=== PATIENT | female | born 1970 | race Caucasian/White ===

== ENCOUNTER 2023-11-29 19:54 | Inpatient (IN) | payer BC, OTHER ==
[~2023-11-29 19:54] MED LIST: Iopamidol 300 61% 100 ML VIAL FS ONE
[2023-11-29] MEDS ORDERED: Ondansetron PF 4 MG/2 ML Vial ONE (20:44)
[2023-11-29] MEDS ORDERED: Morphine 4 MG/ML VIAL ONE ×2 (20:44→23:05)
[2023-11-29 21:20] LABS: Bilirubin Neg (Negative); Blood, Urine 50 (Negative); Clarity Clear (Clear); Glucose, Urine (Dipstick) Normal (Negative); Ketone, Urine Negative (Negative); Leukocyte 25 (Negative); Nitrite Negative (Negative); Protein, Urine (Dipstick) Negative (Neg-Trace); Specific Gravity, Urine 1.015 (1.005-1.030); pH, Urine 6.5 (5.0-9.0)
[2023-11-29 21:25] LABS: #Basophils 0.05 10x3/uL (0.0-0.2); #Eosinphils 0.12 10x3/uL (0.0-0.5); #Monocytes 0.71 10x3/uL (0.0-1.1); #Neutrophils 4.19 10x3/uL (1.5-8.4); %Basophils 0.6 % (0.0-2.0); %Eosinophils 1.4 % (0.0-6.0); %Lymphocytes 38.4 % (18.0-47.0); %Monocytes 8.6 % (0.0-10.0); %Neutrophils 50.6 % (40.0-75.0); Hematocrit 41.4 % (34.9-44.5); Hemoglobin 14.1 g/dL (12.0-15.5); Mean Corpuscular HGB CONC 34.1 g/dL (32.0-36.0); Mean Corpuscular Hemoglobin 29.1 pg (27.0-33.0); Mean Corpuscular Volume 85.5 fl (81.6-98.3); Mean Platelet Volume 9.7 fl (7.4-10.4); Platelet Count 371 10x3/uL (150-450); RBC Distribution Width 13.4 % (11.5-14.5); Red Blood Cell (RBC) Count 4.84 10x6/uL (3.90-5.03); White Blood Cell (WBC) Count 8.3 10x3/uL (3.5-10.5)
[2023-11-29 21:43] LABS: ALT (SGPT) 22 U/L (8-55); AST (SGOT) 16 U/L (5-34); Albumin 4.1 g/dL (3.5-5.0); Alkaline Phosphatase 71 U/L (40-110); Anion Gap 13 mmol/L (10-20); BUN (Urea Nitrogen) 11 mg/dL (9.8-20.1); Bacteria/HPF 1+ HPF (None Seen); Bilirubin, Total 1.4 mg/dL (0.2-1.2); CAUTI Indications for Culture Pelvic or flank pain; Calc. Creatinine Clearance 0 mL/min (70-130); Calcium 9.6 mg/dL (7.8-10.44); Carbon Dioxide 23 mmol/L (22-29); Chloride 108 mmol/L (98-107); Estimated GFR 84; Globulin 3.5 g/dL (2.4-3.5); Glucose 90 mg/dL (70-105); Lipase 9 U/L (8-78); Potassium 3.6 mmol/L (3.5-5.1); Protein, Total 7.6 g/dL (6.0-8.3); RBC/HPF 0-3 HPF (0-3); Sodium 140 mmol/L (136-145); Squamous Epithelial 0-3 HPF (0-3)
[2023-11-29 21:44] LABS: Urine Culture Reflex No No
[2023-11-30] MEDS ORDERED: Dicyclomine 20 MG/2 ML VIAL ONE (01:23)
[2023-11-30] MEDS ORDERED: HYDROmorphone 0.5 MG/0.5 ML SYRINGE ONE ×2 (01:23)
[2023-11-30] MEDS ORDERED: Piperacillin/Tazobactam 4.5 GM VIAL ONE (01:23)
[2023-11-30 02:26] LABS: Hematocrit 38.5 % (34.9-44.5); Hemoglobin 12.6 g/dL (12.0-15.5)
[2023-11-30] MEDS ORDERED: Acetaminophen 325 MG TAB PO PRN (02:38)
[2023-11-30] MEDS ORDERED: Dicyclomine 10 MG CAP PO PRN (02:47)
[2023-11-30] MEDS: Dextrose 5%-Lactated Ringers 1,000 ML IV SCH (04:58)
[2023-11-30 05:05] VITALS: BMI 24.8
[2023-11-30] MEDS: cefTRIAXone\\ROCEPHIN 2 GM in Sodium Chloride 0.9% 100 ML IVPB SCH (05:42)
[2023-11-30] MEDS: metroNIDAZOLE 500 MG in Premix 1 BAG IVPB SCH (06:38)
[2023-11-30] MEDS: Famotidine/PF 20 mg/2ml Vial SLOW IVP SCH (07:50)
[2023-11-30] MEDS: Ondansetron PF 4 MG/2 ML Vial IVP PRN (07:50)
[2023-11-30] MEDS: Morphine 4 MG/ML VIAL SLOW IVP PRN (07:51)
[2023-11-30 09:02] LABS: ALT (SGPT) 18 U/L (8-55); AST (SGOT) 13 U/L (5-34); Albumin 3.5 g/dL (3.5-5.0); Alkaline Phosphatase 59 U/L (40-110); Anion Gap 13 mmol/L (10-20); BUN (Urea Nitrogen) 12 mg/dL (9.8-20.1); Bilirubin, Total 0.9 mg/dL (0.2-1.2); Calc. Creatinine Clearance 90 mL/min (70-130); Calcium 8.7 mg/dL (7.8-10.44); Carbon Dioxide 23 mmol/L (22-29); Chloride 108 mmol/L (98-107); Estimated GFR 87; Globulin 3.1 g/dL (2.4-3.5); Glucose 117 mg/dL (70-105); Potassium 3.7 mmol/L (3.5-5.1); Protein, Total 6.6 g/dL (6.0-8.3); Sodium 140 mmol/L (136-145)
[2023-11-30 09:24] LABS: Hematocrit 36.3 % (34.9-44.5); Hemoglobin 12.2 g/dL (12.0-15.5); Mean Corpuscular Hemoglobin 29.3 pg (27.0-33.0); Mean Corpuscular Volume 87.3 fl (81.6-98.3); Red Blood Cell (RBC) Count 4.16 10x6/uL (3.90-5.03)
[2023-11-30 09:25] LABS: Mean Corpuscular HGB CONC 33.6 g/dL (32.0-36.0); Mean Platelet Volume 9.6 fl (7.4-10.4); Platelet Count 346 10x3/uL (150-450); RBC Distribution Width 13.6 % (11.5-14.5)
[2023-11-30 09:27] LABS: MDiff Complete? YES
[2023-11-30 09:28] LABS: Platelet Adequacy Comment Appears Adequate; RBC Morph Comment Within Normal Limits
[2023-11-30 09:33] LABS: Band 3 % (5-11); Monocytes 6 % (0-10); Neutrophil 65 % (42-75)
[2023-11-30 09:34] LABS: Lymphocytes 23 % (21-51); Reactive Lymphocytes 3 % (0-10)
[2023-11-30] MEDS: Pantoprazole 40 MG VIAL IVP SCH ×2 (10:15→21:55)
[2023-11-30] MEDS: HYDROcodone/Acetaminophen 5/325 mg Tablet PO PRN (10:51)
[2023-11-30 13:37] LABS: #Basophils 0.03 10x3/uL (0.0-0.2); #Eosinphils 0.04 10x3/uL (0.0-0.5); #Monocytes 0.45 10x3/uL (0.0-1.1); #Neutrophils 3.94 10x3/uL (1.5-8.4); %Basophils 0.5 % (0.0-2.0); %Eosinophils 0.6 % (0.0-6.0); %Lymphocytes 30.3 % (18.0-47.0); %Neutrophils 61.1 % (40.0-75.0); Hemoglobin 11.6 g/dL (12.0-15.5); Mean Corpuscular HGB CONC 34.1 g/dL (32.0-36.0); Mean Corpuscular Hemoglobin 29.3 pg (27.0-33.0); Mean Corpuscular Volume 85.9 fl (81.6-98.3); Mean Platelet Volume 9.4 fl (7.4-10.4); Platelet Count 327 10x3/uL (150-450); RBC Distribution Width 13.5 % (11.5-14.5); Red Blood Cell (RBC) Count 3.96 10x6/uL (3.90-5.03); White Blood Cell (WBC) Count 6.4 10x3/uL (3.5-10.5)
[2023-11-30] MEDS: Magnesium Citrate 300 ML BOT PO SCH (21:49)
[2023-11-30] MEDS: GoLYTELY 4,000 ml Bottle PO SCH (22:33)
[2023-12-01] MEDS: GoLYTELY 4,000 ml Bottle PO SCH (05:01)
[2023-12-01 08:08] LABS: #Basophils 0.03 10x3/uL (0.0-0.2); #Monocytes 0.44 10x3/uL (0.0-1.1); #Neutrophils 2.09 10x3/uL (1.5-8.4); %Basophils 0.6 % (0.0-2.0); %Eosinophils 1.9 % (0.0-6.0); %Lymphocytes 49.9 % (18.0-47.0); %Monocytes 8.2 % (0.0-10.0); Hematocrit 34.2 % (34.9-44.5); Hemoglobin 11.5 g/dL (12.0-15.5); Mean Corpuscular HGB CONC 33.6 g/dL (32.0-36.0); Mean Corpuscular Hemoglobin 29.3 pg (27.0-33.0); Mean Platelet Volume 9.7 fl (7.4-10.4); Platelet Count 312 10x3/uL (150-450); RBC Distribution Width 13.5 % (11.5-14.5); Red Blood Cell (RBC) Count 3.93 10x6/uL (3.90-5.03); White Blood Cell (WBC) Count 5.4 10x3/uL (3.5-10.5)
[2023-12-01 08:36] LABS: ALT (SGPT) 13 U/L (8-55); AST (SGOT) 11 U/L (5-34); Albumin 3.4 g/dL (3.5-5.0); Alkaline Phosphatase 55 U/L (40-110); Anion Gap 11 mmol/L (10-20); BUN (Urea Nitrogen) 5 mg/dL (9.8-20.1); Bilirubin, Total 0.9 mg/dL (0.2-1.2); Calc. Creatinine Clearance 91 mL/min (70-130); Calcium 8.9 mg/dL (7.8-10.44); Carbon Dioxide 27 mmol/L (22-29); Chloride 107 mmol/L (98-107); Estimated GFR 89; Globulin 2.7 g/dL (2.4-3.5); Glucose 91 mg/dL (70-105); Potassium 3.3 mmol/L (3.5-5.1); Protein, Total 6.1 g/dL (6.0-8.3); Sodium 142 mmol/L (136-145)
[2023-12-01] MEDS ORDERED: PROPOFOL 40 ML ONE (13:31)
[2023-12-01] MEDS ORDERED: Midazolam HCl 2 mg/2 ml Vial ONE (13:31)
[2023-12-01] MEDS ORDERED: PROPOFOL 20 ML ONE (14:18)
[2023-12-01] MEDS: Potassium Chloride 20 MEQ TAB PO SCH (17:45)
[2023-12-01] MEDS: Dextrose 5%-Lactated Ringers 1,000 ML IV SCH (17:50)
[2023-12-02 05:09] LABS: ALT (SGPT) 12 U/L (8-55); AST (SGOT) 11 U/L (5-34); Albumin 3.4 g/dL (3.5-5.0); Alkaline Phosphatase 52 U/L (40-110); Anion Gap 11 mmol/L (10-20); BUN (Urea Nitrogen) 4 mg/dL (9.8-20.1); Bilirubin, Total 0.9 mg/dL (0.2-1.2); Calc. Creatinine Clearance 94 mL/min (70-130); Calcium 8.8 mg/dL (7.8-10.44); Carbon Dioxide 26 mmol/L (22-29); Chloride 107 mmol/L (98-107); Estimated GFR 93; Globulin 2.9 g/dL (2.4-3.5); Glucose 96 mg/dL (70-105); Potassium 3.4 mmol/L (3.5-5.1); Protein, Total 6.3 g/dL (6.0-8.3); Sodium 141 mmol/L (136-145)
[2023-12-02 05:17] LABS: #Basophils 0.04 10x3/uL (0.0-0.2); #Eosinphils 0.13 10x3/uL (0.0-0.5); #Monocytes 0.42 10x3/uL (0.0-1.1); #Neutrophils 2.23 10x3/uL (1.5-8.4); %Basophils 0.7 % (0.0-2.0); %Eosinophils 2.4 % (0.0-6.0); %Lymphocytes 47.9 % (18.0-47.0); %Monocytes 7.7 % (0.0-10.0); %Neutrophils 40.8 % (40.0-75.0); Hematocrit 35.1 % (34.9-44.5); Hemoglobin 11.6 g/dL (12.0-15.5); Mean Corpuscular Hemoglobin 29.1 pg (27.0-33.0); Mean Platelet Volume 9.9 fl (7.4-10.4); Platelet Count 338 10x3/uL (150-450); RBC Distribution Width 13.6 % (11.5-14.5); Red Blood Cell (RBC) Count 3.99 10x6/uL (3.90-5.03); White Blood Cell (WBC) Count 5.5 10x3/uL (3.5-10.5)
[2023-12-02] MEDS: Potassium Chloride 20 MEQ TAB PO SCH (16:45)
[2023-12-02 17:55] VITALS: BP 132/86; TEMP 98.5
[2023-12-03 05:13] LABS: Adenovirus F 40-41 Not Detected (Not Detected); Astrovirus Not Detected (Not Detected); C. difficile toxin A+B Not Detected (Not Detected); Campylobacter by PCR Not Detected (Not Detected); Cryptosporidium Not Detected (Not Detected); Cyclospora cayetanensis Not Detected (Not Detected); Entamoeba histolytica Not Detected (Not Detected); Enteroaggregative E. coli Not Detected (Not Detected); Enteropathogenic E. coli Not Detected (Not Detected); Enterotoxigenic E. coli Not Detected (Not Detected); Giardia lamblia Not Detected (Not Detected); Norovirus GI-GII Not Detected (Not Detected); Plesiomonas shigelloides Not Detected (Not Detected); Rotavirus A Not Detected (Not Detected); Salmonella Not Detected (Not Detected); Sapovirus Not Detected (Not Detected); Shiga-toxin-producing E coli Not Detected (Not Detected); Shigella/Enteroinvasive E coli Not Detected (Not Detected); Vibrio Not Detected (Not Detected); Vibrio cholerae Not Detected (Not Detected); Yersinia enterocolitica Not Detected (Not Detected)
== END 2023-12-02 19:22 | disposition home or self-care (01) | DRG 378 ==
LOC: CSHERS 19:54 → CSHTELE 11-30 02:47 → OBSVTOIN 11-30 08:40
PROVIDERS: ADMIT Student in an Organized Health Care Education/Training Program; ATTEND Family Medicine
PROC: 0DB78ZX Excision of Stomach, Pylorus, Via Natural or Artificial Opening Endoscopic, Diagnostic (ICD-10-PCS; principal; 2023-12-01)
PROC: 0DJD8ZZ Inspection of Lower Intestinal Tract, Via Natural or Artificial Opening Endoscopic (ICD-10-PCS; 2023-12-01)
DX: K92.1 Melena (principal); D62 Acute posthemorrhagic anemia; K57.30 Diverticulosis of large intestine without perforation or abscess without bleeding; K64.8 Other hemorrhoids; K52.9 Noninfective gastroenteritis and colitis, unspecified; I10 Essential (primary) hypertension; F90.9 Attention-deficit hyperactivity disorder, unspecified type; F41.9 Anxiety disorder, unspecified; K21.9 Gastro-esophageal reflux disease without esophagitis; K64.4 Residual hemorrhoidal skin tags; R10.11 Right upper quadrant pain; R10.32 Left lower quadrant pain; E87.6 Hypokalemia; Z98.891 History of uterine scar from previous surgery; Z90.710 Acquired absence of both cervix and uterus; Z98.890 Other specified postprocedural states
CPT/HCPCS: 36415; 74177; 76705; 78227; 80053; 81001; 83605; 83690; 85014; 85018; 85025; 86140; 87086; 87324; 87449; 87505; 87507; 96365; 96372; 96375; 96376; A9537; C9113; G0378; J0696; J1170; J2250; J2270; J2405; J2543; J2704; J3490; Q9967; S0028